=== PATIENT | male | born 1990 | race Caucasian/White ===

== ENCOUNTER 2024-08-16 23:19 | Emergency (ER) | payer OTHER, MEDICAID ==
[2024-08-16 23:36] LABS: BASOPHILS ABSOLUTE AUTO 0.1 K/mm3 (0.0-0.2); BASOPHILS PERCENT AUTO 0.6 % (0.0-1.0); EOSINOPHILS ABSOLUTE AUTO 0.1 K/mm3 (0.0-0.4); EOSINOPHILS PERCENT AUTO 1.2 % (0.0-6.0); HEMATOCRIT 47.1 % (42.0-52.0); IMMATURE GRAN ABSOLUTE AUTO 0.07 K/mm3 (0.00-0.05); IMMATURE GRAN PERCENT AUTO 0.8 % (0.0-0.4); LYMPHOCYTES ABSOLUTE AUTO 3.6 K/mm3 (1.0-4.8); LYMPHOCYTES PERCENT AUTO 39.7 % (24.0-44.0); MEAN CORPUSCULAR HEMOGLOBIN 30.8 pg (28.0-32.0); MEAN CORPUSCULAR HGB CONC 36.1 g/dl (32.0-36.0); MEAN CORPUSCULAR VOLUME 85.3 fl (83.0-99.0); MEAN PLATELET VOLUME 9.9 fl (9.4-12.4); MONOCYTES ABSOLUTE AUTO 0.5 K/mm3 (0.0-0.8); MONOCYTES PERCENT AUTO 5.3 % (0.0-8.0); NEUTROPHILS ABSOLUTE AUTO 4.7 K/mm3 (1.8-7.7); NEUTROPHILS PERCENT AUTO 52.4 % (41.0-71.0); PLATELET COUNT,PLT 264 K/mm3 (150-400); RED BLOOD CELL COUNT 5.52 M/mm3 (4.52-5.90); WHITE BLOOD CELL COUNT,WBC 8.94 K/mm3 (3.9-11.3)
[2024-08-16] MEDS: Metoclopramide 10 MG/2 ML SDV IVPUSH ONE (23:43)
[2024-08-16] MEDS: Dextrose 5%-0.9% NaCl 1,000 ML IV SCH (23:43)
[2024-08-16] MEDS: HYDROmorphone 1 MG/ML Syringe IVPUSH ONE (23:44)
[2024-08-17 00:03] LABS: A/G RATIO 1.4 (1-2); ALANINE AMINOTRANSFERASE,ALT 48 U/L (16-63); ALBUMIN 4.1 g/dl (3.4-5.0); ALKALINE PHOSPHATASE 71 U/L (46-116); ANION GAP 17.9 (5-15); ASPARTATE AMNIOTRANSFERASE,AST 63 U/L (15-37); BILIRUBIN TOTAL 1.2 mg/dL (0.2-1.0); BLOOD UREA NITROGEN,BUN 15 mg/dL (7-18); BUN/CREATININE RATIO 12.5 (14-18); C-REACTIVE PROTEIN <0.05 mg/dL (<0.30); CALCIUM 9.4 mg/dL (8.5-10.1); CARBON DIOXIDE,CO2 24 mEq/L (21-32); CHLORIDE,CL 100 mEq/L (98-107); CREATININE 1.2 mg/dL (0.7-1.3); ESTIMATED GFR 82 mL/min (>60); GLUCOSE RANDOM 141 mg/dL (70-99); MAGNESIUM 1.6 mg/dL (1.8-2.4); POTASSIUM,K 2.9 mEq/L (3.5-5.1); PROTEIN TOTAL,TP 7.1 g/dl (6.4-8.2); SODIUM,NA 139 mEq/L (136-145)
[2024-08-17 00:05] LABS: LACTIC ACID 2.7 mmol/L (0.4-2.0)
[2024-08-17] MEDS: Magnesium Sulfate/Water Premix 2 GM/50 ML BAG IV SCH (00:44)
[2024-08-17] MEDS ORDERED: Iopamidol 612 MG/ML 100 ML Bottle IVPUSH ONE (00:45)
[2024-08-17] MEDS: Potassium Chloride 10 MEQ in Premix Bag 1 BAG IV SCH (00:45)
[2024-08-17] MEDS: Lidocaine 2% 11 ML Jelly Filled Syringe MUCMEM ONE (02:19)
[2024-08-17 02:38] LABS: APPEARANCE,URINE CLEAR (Clear); BILIRUBIN,URINE NEGATIVE (Negative); COLOR,URINE YELLOW (Yellow); GLUCOSE,URINE NEGATIVE (Negative); KETONES,URINE 1+ (Negative); LEUKOCYTE ESTERASE,URINE NEGATIVE (Negative); NITRITE,URINE NEGATIVE (Negative); OCCULT BLOOD,URINE TRACE-INTACT (Negative); PROTEIN,URINE TRACE (Negative)
[2024-08-17 02:56] LABS: AMORPHOUS SEDIMENT,URINE MODERATE /hpf (NOT SEEN); BACTERIA,URINE FEW /hpf (FEW); EPITHELIAL CELLS,URINE NOT SEEN /hpf (0-5); MUCUS,URINE NOT SEEN /hpf (FEW); WBC,URINE 0-5 /hpf (0-5)
[2024-08-17] MEDS: HYDROmorphone 1 MG/ML Syringe IVPUSH ONE (03:37)
== END 2024-08-17 04:00 ==
LOC: JD.ED 23:19
DX: S32.401A Unspecified fracture of right acetabulum, initial encounter for closed fracture (principal); S32.301A Unspecified fracture of right ilium, initial encounter for closed fracture; S32.591A Other specified fracture of right pubis, initial encounter for closed fracture; S00.03XA Contusion of scalp, initial encounter; S37.92XA Contusion of unspecified urinary and pelvic organ, initial encounter; V89.2XXA Person injured in unspecified motor-vehicle accident, traffic, initial encounter
CPT/HCPCS: 36415; 51702; 70450; 71260; 72125; 72128; 72131; 72170; 73552; 74177; 80053; 80307; 81001; 83605; 83735; 85025; 86140; 96361; 96365; 96366; 96368; 96375; 96376; 99285; A9270; J1171; J2765; J3475; J3480; J7042; 99284